=== PATIENT | female | born 1985 | race Caucasian/White ===

== ENCOUNTER 2025-06-23 22:33 | Emergency (ER) | payer OTHER ==
[~2025-06-23] VITALS: Ht 149.9 cm; Wt 62.0 kg
[~2025-06-23 22:33] MED LIST: OMEPRAZOLE20 MG PO; VENTOLIN HFA18 GM INH; VICODIN 5-5001 EACH PO
[2025-06-24] MEDS ORDERED: AMOX TR-K CLV1 EAC1 PO (01:41)
[2025-06-24] MEDS ORDERED: AMOXICILLIN/CLAVULANATE K 875 MG HOME.PACK PO ONE (01:45)
[2025-06-24 02:00] VITALS: BP 137/89
== END 2025-06-24 02:01 | disposition home or self-care (01) ==
LOC: ED 22:33
DX: L08.9 Local infection of the skin and subcutaneous tissue, unspecified (principal); S81.852A Open bite, left lower leg, initial encounter; S81.851A Open bite, right lower leg, initial encounter; W54.0XXA Bitten by dog, initial encounter; F17.200 Nicotine dependence, unspecified, uncomplicated; Z88.8 Allergy status to other drugs, medicaments and biological substances; Z79.899 Other long term (current) drug therapy
CPT/HCPCS: 99283